=== PATIENT | male | born 1995 | race Hispanic/Latino ===

== ENCOUNTER 2019-09-08 15:38 | Outpatient (CLI) | payer OTHER ==
--- NOTE | 2019-09-08 17:52 | MRI ---
MRI OF LUMBAR SPINE PERFORMED WITHOUT CONTRAST ENHANCEMENT: 09/08/19 HISTORY: Spondylolisthesis of spine. Patient states pain running down right leg. COMPARISON: None. The vertebral bodies are normal in height. There is some early disc desiccation changes without signi ficant disc narrowing at L4-5. At the L5-S1 level, there is a moderate spondylolisthesis of approxima tely 12 mm. Difficult to appreciate a definite pars defect. There is no significant periaortic adenop athy and the visualized kidneys are normal. T12-L1: Unremarkable. L1-2: Unremarkable. L2-3: Unremarkable. L3-4: No canal or foraminal stenosis. L4-5: No significant canal or foraminal stenosis. L5-S1: Spondylolisthesis and disc bulging associated with mild to moderate degree of canal narrowing at this level and moderately severe bilateral foraminal stenosis. IMPRESSION: Approximately 12 mm spondylolisthesis at L5 on S1. This is associated with a mild to moderate degree of canal narrowing and moderate bilateral foraminal stenosis. POS: [facility]
== END 2019-09-08 15:39 | disposition home or self-care (01) ==
LOC: BICMRI 15:38
PROVIDERS: ATTEND Anesthesiology
DX: M43.17 Spondylolisthesis, lumbosacral region (principal); M48.07 Spinal stenosis, lumbosacral region
CPT/HCPCS: 72148